=== PATIENT | male | born 1950 | race Caucasian/White ===

== ENCOUNTER 2021-09-30 11:29 | Outpatient (CLI) | payer MEDICARE, OTHER ==
--- NOTE | 2021-09-30 18:44 | XRAY Report ---
PROCEDURE: Foot 3 View LT INDICATIONS: NEUROMA TECHNIQUE: 3 views of the foot were acquired. COMPARISON: None. FINDINGS: BONES: No acute, displaced fracture or dislocation. Calcific density in the expected location of the Lisfranc ligament, which may reflect prior traumatic injury. An accessory cuboid is seen. SOFT TISSUES: Vascular calcifications. IMPRESSION: 1.No significant osseous abnormality. Reviewed by: Alberto Gan MD on 09/30/2021 6:43 PM PST Approved by: Alberto Gan MD on 09/30/2021 6:43 PM PST Station ID: [id number]
== END 2021-09-30 11:30 | disposition home or self-care (01) ==
LOC: DI 11:29
PROVIDERS: ATTEND Podiatrist Foot & Ankle Surgery
DX: D36.10 Benign neoplasm of peripheral nerves and autonomic nervous system, unspecified (principal)

== ENCOUNTER 2021-11-25 10:35 | Outpatient (CLI) | payer MEDICARE, OTHER ==
[2021-11-25] MEDS ORDERED: GADOBUTROL 10 MMOL/10 ML VIAL ONE (11:36)
--- NOTE | 2021-11-25 13:48 | MRI Report ---
PROCEDURE: Foot LT W/WO INDICATIONS: NEUROMA CONTRAST: IV CONTRAST: Gadavist ml: 7.7 TECHNIQUE: Noncontrast sagittal T1 spin echo and T2 fast spin echo with fat saturation, long-axis T1 spin echo a nd T2 fast spin echo with fat saturation; short-axis T1 spin echo, proton density fast spin echo, and T2 fast spin echo with fat saturation through the forefoot. Post-contrast short axis, long axis, an d sagittal T1 spin echo with fat saturation through the forefoot. COMPARISON: Left foot radiograph dated 09/30/2021. FINDINGS: Image quality: Excellent. Bones and joints: Surface skin marker is seen over dorsal aspect of third metatarsal neck. No suspici ous osseous enhancement. Mild midfoot and forefoot joint osteoarthritic changes are seen with joint space narrowing and subchondral sclerosis. No bone marrow contusions or metatarsal stress fractures. No intraosseous lesions. Small amount of fluid within second and third MCP joint is seen. No gross i ntra-articular loose bodies. Soft tissues: No suspicious soft tissue enhancement. No discrete soft tissue mass is noted within i n the metatarsal soft tissue to suggest neuroma The visualized plantar foot muscles demonstrate yasir l signal and bulk. Visualized flexor and extensor tendons appear intact, without tenosynovitis. The distal insertions of the peroneus brevis and longus tendons appear intact. The principal Lisfranc l igament appears intact. No soft tissue ganglion cysts or bursal fluid collections. Sagittal images demonstrate no evidence for plantar plate tears. IMPRESSION: 1. No enhancing intermetatarsal soft tissue mass is seen to suggest neuroma. No discrete drainable fl uid collection. No ganglion cysts. 2. Mild midfoot and forefoot joint osteoarthritis. No marrow edema. No fracture or dislocation. No me tatarsal stress fracture. No abnormal intraosseous enhancement. 3. Forefoot tendons and ligaments are grossly intact. Reviewed by: Jt Winslow MD on 11/25/2021 1:47 PM PST Approved by: Jt Winslow MD on 11/25/2021 1:47 PM PST Station ID: [id number]
[2021-11-25] MEDS ORDERED: GADOBUTROL 10 MMOL/10 ML VIAL IVP ONE (16:41)
== END 2021-11-25 10:36 | disposition home or self-care (01) ==
LOC: DI 10:35
PROVIDERS: ATTEND Podiatrist Foot & Ankle Surgery
DX: D36.10 Benign neoplasm of peripheral nerves and autonomic nervous system, unspecified (principal); M19.072 Primary osteoarthritis, left ankle and foot
CPT/HCPCS: 73720; A9585

== ENCOUNTER 2023-03-25 09:20 | Outpatient (CLI) | payer MEDICARE, OTHER ==
--- NOTE | 2023-03-28 21:13 | MRI Report ---
PROCEDURE: FOOT WO - LT INDICATIONS: FOOT PAIN NEUROMA TECHNIQUE: Noncontrast sagittal T1 spin echo and T2 fast spin echo with fat saturation, long-axis T1 spin echo a nd T2 fast spin echo with fat saturation, short-axis proton density fast spin echo and T2 fast spin e cho with fat saturation through the forefoot. COMPARISON: 11/25/2021 and 09/30/2021. FINDINGS: Image quality: Excellent. Bones and joints: Osteoarthritic changes are noted throughout midfoot and forefoot joints with joint space narrowing and subchondral sclerosis. Finding is most notably involving first MTP joint. There i s no marrow edema. No acute fracture or dislocation. No suspicious bony lesions. Soft tissues: The visualized plantar foot muscles demonstrate normal signal and bulk. Visualized fl exor and extensor tendons appear intact, without tenosynovitis. Heterogeneous T2 hyperintense signal within soft tissue between third and fourth metatarsal head is seen most consistent with postsurgical scarring. No discrete soft tissue mass or drainable fluid collection is identified. Sagittal views s hows no gross plantar plate tear. IMPRESSION: 1. Subtle signal abnormality within soft tissue between third and fourth metatarsal heads which most likely represent postsurgical changes given patient's clinical history. No discrete soft tissue mass or drainable fluid collection is seen. No intermetatarsal bursal fluid. 2. Flexor and extensor tendons are intact. Lisfranc ligament and joint is intact. 3. No marrow edema. No fracture or dislocation. Mild to moderate midfoot and forefoot joint osteoarth ritis. Reviewed by: Jt Winslow MD on 03/28/2023 9:11 PM PDT Approved by: Jt Winslow MD on 03/28/2023 9:11 PM PDT Station ID: [id number]
== END 2023-03-25 09:21 | disposition home or self-care (01) ==
LOC: DI 09:20
PROVIDERS: ATTEND Podiatrist Foot & Ankle Surgery
DX: L90.5 Scar conditions and fibrosis of skin (principal); D36.10 Benign neoplasm of peripheral nerves and autonomic nervous system, unspecified; M19.072 Primary osteoarthritis, left ankle and foot

== ENCOUNTER 2024-05-20 14:06 | Outpatient (CLI) | payer MEDICARE, OTHER ==
--- NOTE | 2024-05-21 12:25 | Mammography Report ---
MALE BILATERAL DIGITAL DIAGNOSTIC MAMMOGRAM 3D/2D: 05/20/2024 CLINICAL: Baseline exam. Focal right breast pain. No prior exams were available for comparison. There is asymmetric right gynecomastia corresponding to area of clinical concern. No other significan t masses, calcifications, or other findings are seen in either breast. IMPRESSION: BENIGN Asymmetric right breast gynecomastia corresponding to area of clinical concern. No mammographic evide nce of malignancy. Clinical follow-up is recommended, and further management of palpable abnormalities or other focal si gns or symptoms should be based on the results of clinical evaluation. If palpable abnormality or oth er concerning symptom persists or progresses, further clinical evaluation should be considered. Findings and recommendations were conveyed to the patient during today's evaluation. This exam was interpreted at Station ID: [id number]. NOTE: For mammograms, a report in lay terms will be sent to the patient. Approximately 15% of breast malignancies will not be visualized mammographically. In the management of a palpable breast mass, a negative mammogram must not discourage biopsy of a clinically suspicious lesion. Electronically Signed By: Batsheva Duke M.D., Ph.D. eb/:05/20/2024 15:00:17 ACR BI-RADS Category 2: Benign Finding(s) 3342F PARENCHYMAL PATTERN: (F) - The breast(s) demonstrate(s) diffuse fatty replacement. BI-RADS CATEGORY: (2) - 2 Unspecified - other recall n/a LATERALITY: (B)
== END 2024-05-20 14:07 | disposition home or self-care (01) ==
LOC: DI 14:06
PROVIDERS: ATTEND Student in an Organized Health Care Education/Training Program
DX: N64.4 Mastodynia (principal); N62 Hypertrophy of breast